=== PATIENT | female | born 1980 | race Caucasian/White ===

== ENCOUNTER 2022-07-12 09:17 | Outpatient (CLI) | payer OTHER, SELFPAY ==
--- NOTE | 2022-07-12 10:15 | CRLHL7_ITS ---
For Patients: As a result of the Century Cures Act, medical imaging exams and procedure reports are released immediately into your electronic medical record. You may view this report before your referring provider. If you have questions, please contact your health care provider. BILATERAL SCREENING MAMMOGRAM WITH COMPUTER-AIDED DETECTION AND TOMOSYNTHESIS TECHNIQUE: CC and MLO views were obtained. These mammographic images have been obtained using full-field digital technique. These mammographic images were interpreted with the benefit of computer-aided detection. Breast Tomosynthesis was used in this interpretation. COMPARISON FILM: Baseline. FINDINGS: There are scattered areas of fibroglandular density IMPRESSION: There is no radiographic evidence for malignancy. ASSESSMENT: BI-RADS Category 2: Benign RECOMMENDATION: Routine screening mammogram in 1 year. A lay language report of this examination will be provided to the patient. Robert Dumas M.D. Diagnostic/Nuclear Medicine Radiologist [email or web address] Transcribed: 2:24 pm DW/Dictated by: Robert Dumas MD @ 07/12/2022 10:01:00 AM (Electronically Signed)
== END 2022-07-12 09:18 | disposition home or self-care (01) ==
LOC: MAMMO 09:18
PROVIDERS: PCP Physician Assistant Medical; Visit Provider Obstetrics & Gynecology
DX: Z12.31 Encounter for screening mammogram for malignant neoplasm of breast (principal)
CPT/HCPCS: 77063; 77067

== ENCOUNTER 2023-07-27 09:59 | Outpatient (CLI) | payer OTHER, SELFPAY ==
--- NOTE | 2023-07-27 10:15 | CRLHL7_ITS ---
For Patients: As a result of the Century Cures Act, medical imaging exams and procedure reports are released immediately into your electronic medical record. You may view this report before your referring provider. If you have questions, please contact your health care provider. BILATERAL DIGITAL SCREENING MAMMOGRAM WITH TOMOSYNTHESIS AND COMPUTER-AIDED DETECTION CLINICAL HISTORY: Routine screening exam. COMPARISON: 07/12/2022. TECHNIQUE: Digital mammogram in CC and MLO projections including tomosynthesis and computer-aided detection (CAD). BREAST COMPOSITION: There are scattered areas of fibroglandular density. FINDINGS: RIGHT Breast: Focal asymmetric density upper outer quadrant 8 cm from the nipple. LEFT Breast: No suspicious findings. IMPRESSION: RIGHT breast asymmetry/mass. RECOMMENDATIONS: Additional mammographic views of the RIGHT breast including 3D spot-compression CC/MLO. RIGHT breast ultrasound may also be required. BI-RADS Category 0: Incomplete: Need Additional Imaging Evaluation and/or Prior Mammograms for Comparison The [facility] will contact the patient for follow-up. A lay language report of this examination will be provided to the patient. Dictated by Willem Martinez MD @ 07/27/2023 12:40:32 PM SP/Dictated by: Willem Martinez MD @ 07/27/2023 12:40:00 PM (Electronically Signed)
== END 2023-07-27 10:00 | disposition home or self-care (01) ==
LOC: MAMMO 10:00
PROVIDERS: PCP Physician Assistant Medical; Visit Provider Obstetrics & Gynecology
DX: Z12.31 Encounter for screening mammogram for malignant neoplasm of breast (principal); N63.10 Unspecified lump in the right breast, unspecified quadrant
CPT/HCPCS: 77063; 77067; 80061; 82947; 84443

== ENCOUNTER 2023-07-31 09:27 | Outpatient (CLI) | payer OTHER, SELFPAY ==
--- NOTE | 2023-07-31 09:45 | MM_ITS ---
3D DIAGNOSTIC RIGHT BREAST MAMMOGRAM DIAGNOSTIC WITH CT AND TARGETED DIAGNOSTIC RIGHT BREAST ULTRASOUND. INDICATION: NODULAR DENSITY. COMPARISON: 07/27/2023. FINDINGS: 3D SPOT COMPRESSION ML/MLO RIGHT BREAST MAMMOGRAM IMAGES SUBMITTED. PERSISTENT NODULAR DENSITIES WITHIN THE UPPER-OUTER QUADRANT WITH MORPHOLOGY MOST CONSISTENT WITH LYMPH NODES. NO ARCHITECTURAL DISTORTION OR SUSPICIOUS CALCIFICATIONS. TARGETED RIGHT BREAST ULTRASOUND PERFORMED AT 11:00 A.M. 8 CM FROM THE NIPPLE AND 10:00 A.M. 8 CM FROM THE NIPPLE. IN THESE LOCATIONS, THERE ARE BENIGN INTRAMAMMARY LYMPH NODES WITH NORMAL MORPHOLOGY MEASURING 6 X 3 X 4 MM AT POSTERIOR DEPTH 10:00 A.M. 8 CM FROM THE NIPPLE AND MEASURING 6 X 3 X 7 MM AT MID DEPTH 11:00 A.M. 8 CM FROM THE NIPPLE. IMPRESSION: BENIGN INTRAMAMMARY LYMPH NODES. NO SUSPICIOUS FINDINGS. NO EVIDENCE OF MALIGNANCY. RECOMMENDATIONS: ANNUAL BILATERAL SCREENING MAMMOGRAPHY. BI-RADS CATEGORY 2. BENIGN. RESULTS AND RECOMMENDATIONS DISCUSSED WITH THE PATIENT.
== END 2023-07-31 09:28 | disposition home or self-care (01) ==
LOC: MAMMO 09:27
PROVIDERS: PCP Physician Assistant Medical; Visit Provider Physician Assistant Medical
DX: N63.10 Unspecified lump in the right breast, unspecified quadrant (principal); R92.8 Other abnormal and inconclusive findings on diagnostic imaging of breast
CPT/HCPCS: 76642; 77065; G0279

== ENCOUNTER 2024-07-25 07:31 | Outpatient (CLI) | payer OTHER, SELFPAY | END 2024-07-25 07:32 | disposition home or self-care (01) | LOC: NFLDREF 08-01 02:21 | PROVIDERS: PCP Physician Assistant Medical; Referring Provider Physician Assistant Medical; Visit Provider Physician Assistant Medical | DX: Z13.228 Encounter for screening for other metabolic disorders (principal); Z13.220 Encounter for screening for lipoid disorders; Z13.29 Encounter for screening for other suspected endocrine disorder | CPT/HCPCS: 80053; 80061; 84443 ==

== ENCOUNTER 2024-09-08 09:32 | Outpatient (CLI) | payer OTHER, SELFPAY ==
--- NOTE | 2024-09-08 09:45 | CRLHL7_ITS ---
For Patients: As a result of the Century Cures Act, medical imaging exams and procedure reports are released immediately into your electronic medical record. You may view this report before your referring provider. If you have questions, please contact your health care provider. BILATERAL DIGITAL SCREENING MAMMOGRAM WITH COMPUTER-AIDED DETECTION AND TOMOSYNTHESIS CLINICAL HISTORY: Routine screening exam. COMPARISON: 07/27/23, 07/12/22. TECHNIQUE: Digital mammogram in CC and MLO projections including computer-aided detection (CAD). Tomosynthesis was used in this interpretation. BREAST COMPOSITION: There are scattered areas of fibroglandular density. FINDINGS: RIGHT Breast: No suspicious findings. LEFT Breast: Focal asymmetric density in the lower outer quadrant 2 cm from the nipple. IMPRESSION: LEFT breast asymmetry/mass. RECOMMENDATIONS: Additional mammographic views of the LEFT breast including 3D spot compression CC/MLO. LEFT breast ultrasound may also be required. The [facility] will contact the patient. A lay language report of this examination will be provided to the patient. BI-RADS Category 0: Incomplete: Need Additional Imaging Evaluation Dictated by Willem Martinez MD @ 09/15/2024 10:34:57 AM /Dictated by: Willem Martinez MD @ 09/15/2024 10:34:00 AM (Electronically Signed)
== END 2024-09-08 09:33 | disposition home or self-care (01) ==
LOC: MAMMO 09:32
PROVIDERS: PCP Physician Assistant Medical; Visit Provider Physician Assistant Medical
DX: Z12.31 Encounter for screening mammogram for malignant neoplasm of breast (principal); N63.20 Unspecified lump in the left breast, unspecified quadrant
CPT/HCPCS: 77063; 77067

== ENCOUNTER 2024-09-16 08:25 | Outpatient (CLI) | payer OTHER, SELFPAY ==
--- NOTE | 2024-09-16 08:45 | CRLHL7_ITS ---
For Patients: As a result of the Century Cures Act, medical imaging exams and procedure reports are released immediately into your electronic medical record. You may view this report before your referring provider. If you have questions, please contact your health care provider. DIGITAL DIAGNOSTIC LEFT MAMMOGRAM USING TOMOSYNTHESIS AND COMPUTER-AIDED DETECTION LEFT BREAST ULTRASOUND CLINICAL HISTORY: LEFT breast mass/asymmetry. COMPARISON: 09/08/24, 07/27/23, 07/12/22. TECHNIQUE: Digital LEFT mammogram in two projections. Tomosynthesis and CAD were used in this interpretation. Real-time ultrasound imaging of LEFT breast with imaging documentation. Scanning was performed by both the technologist and the radiologist. BREAST COMPOSITION: There are scattered areas of fibroglandular density. FINDINGS: 3D spot compression CC/MLO LEFT breast mammogram images submitted. Decreased conspicuity of previously noted asymmetric density. No architectural distortion. No suspicious calcifications. Targeted LEFT breast ultrasound performed. At 5-6 o`clock, 3 cm from the nipple, there is normal fibroglandular tissue. No suspicious mass or fibrocystic change. IMPRESSION: No evidence of malignancy. RECOMMENDATIONS: Routine screening mammography. A lay language report of this examination will be provided to the patient. BI-RADS Category 2: Benign Dictated by Willem Martinez MD @ 09/16/2024 10:00:45 AM jj/Dictated by: Willem Martinez MD @ 09/16/2024 10:00:00 AM (Electronically Signed)
--- NOTE | 2024-09-16 09:15 | CRLHL7_ITS ---
For Patients: As a result of the Century Cures Act, medical imaging exams and procedure reports are released immediately into your electronic medical record. You may view this report before your referring provider. If you have questions, please contact your health care provider. SEE DIGITAL DIAGNOSTIC LEFT MAMMOGRAM PERFORMED SAME DAY CRL:[email or web address]/Dictated by: Willem Martinez MD @ 09/16/2024 9:58:00 AM (Electronically Signed)
== END 2024-09-16 08:26 | disposition home or self-care (01) ==
LOC: MAMMO 08:26
PROVIDERS: PCP Physician Assistant Medical; Visit Provider Physician Assistant Medical
DX: N63.20 Unspecified lump in the left breast, unspecified quadrant (principal)
CPT/HCPCS: 76642; 77065; G0279